=== PATIENT | female | born 1980 | race African-American/Black ===

== ENCOUNTER → 2017-03-17 | Outpatient (CLI) | payer MEDICARE, MEDICAID ==
--- NOTE | 2017-03-17 08:12 | WOMENS IMAGING REPORT ---
EXAM DESCRIPTION: TRANSVAGINAL ULTRASOUND COMPLETED DATE/TIME: 03/17/2017 7:36 am REASON FOR STUDY: PELVIC AND PERINEAL PAIN;R10.2 R10.2 PELVIC AND PERINEAL PAIN COMPARISON: None. TECHNIQUE: Dynamic and static grayscale images acquired of the pelvis via transvaginal approach and recorded on PACS. Additional selected color Doppler and spectral images recorded. LIMITATIONS: None. FINDINGS: UTERUS: Couple small hypoechoic areas are identified most consistent with small uterine fi broids. The largest of which measures 2.0 x 1.7 x 1.1 cm ENDOMETRIAL STRIPE: No focal or generalized thickening. No masses. CERVIX: No nabothian cysts. RIGHT OVARY: A complex area is identified measuring 3.5 x 2.1 x 3.2 cm in diameters most consistent w ith a hemorrhagic cyst. Other etiologies including an endometrioma or small dermoid cyst cannot be ex cluded. RIGHT OVARY DOPPLER: Normal arterial vascular flow without evidence for torsion. LEFT OVARY: No abnormal masses. LEFT OVARY DOPPLER: Normal arterial vascular flow without evidence for torsion. FREE FLUID: Small amount of free fluid is identified. OTHER: No other significant finding. MEASUREMENTS: UTERUS: 8.9 x 5.3 x 6.3 cm ENDOMETRIAL STRIPE: 4.2 mm RIGHT OVARY: 5.7 x 2.5 x 4.1 cm LEFT OVARY: 2.2 x 2.3 x 3.3 cm IMPRESSION: Possible small uterine fibroids as noted above. Complex area in the right ovary with di fferential possibilities as noted above. If clinically warranted followup pelvic ultrasound may be o f value for further evaluation. Other findings as noted above TECHNICAL DOCUMENTATION: JOB ID: [id number]- All Rights Reserved
== END ==
LOC: WI 13:48
PROVIDERS: ATTEND Physician Assistant
DX: R10.2 Pelvic and perineal pain (principal)
CPT/HCPCS: 76830